=== PATIENT | male | born 1985 | race Caucasian/White ===

== ENCOUNTER → 2016-07-03 | Outpatient (CLI) | payer OTHER ==
--- NOTE | ~2016-07-03 | US85 ---
[facility] A Service of [facility] RADIOLOGY TEXT RESULTS PATIENT: ALONZO TORRES LOCATION: SNIV : 85 UNIT #: [id number] AGE: [address]: Akhil Matias MD SEX: M ORDER DR: [id number] [place] [id number] MR#: [id number] Acc #: [id number] NAME: ALONZO TORRES : 1985 SEX: M STUDY DATE/TIME: 07/03/2016 13:08 UNIT: SNIV ROOM: STUDY DESCRIPTION: [facility] Unil or [facility] Stdy Attending Physician: Akhil Matias M.D. Referring Physician: Akhil Matias M.D. Ordering Physician: Akhil Matias M.D. Primary Care Physician: Akhil Matias M.D. MEDICAL IMAGING REPORT This report is preliminary unless electronic signature is present. EXAM Right lower extremity venous duplex, 07/03/2016. HISTORY Right lower extremity pain and swelling for 2 months. Evaluate for deep vein thrombosis. TECHNIQUE Venous ultrasound examination of the right lower extremity was performed using grayscale, spectral Doppler and color flow Doppler imaging. FINDINGS The examination is negative. There is no evidence of right lower extremity deep venous thrombus from the groin to the lower calf. Visualized greater saphenous vein is also patent. IMPRESSION Negative examination. No evidence of right lower extremity deep venous thrombosis. Dictated by... Crow Skinner M.D. THIS IS AN ELECTRONICALLY VERIFIED REPORT Crow Skinner M.D. at 07/04/2016 2:27 PM KRT/geoffrey TD: 07/03/2016 15:13 JOB #: [id number] [facility] A Service [facility] RADIOLOGY TEXT RESULTS PATIENT: ALONZO TORRES LOCATION: SNIV : 85 UNIT #: [id number] AGE: [address]: Akhil Matias MD SEX: M ORDER DR: MEDICAL IMAGING REPORT Page 1 of 1
== END | disposition home or self-care (01) ==
LOC: SNIV 12:43
DX: M79.89 Other specified soft tissue disorders (principal)
CPT/HCPCS: 93971

== ENCOUNTER 2016-08-04 06:37 | Emergency (ER) | payer OTHER ==
--- NOTE | ~2016-08-04 | EKG ---
PATIENT: ALONZO TORRES UNIT #: [id number] Ventricular Rate: 86 BPM Atrial Rate: 86 BPM P-R Interval: 116 ms QRS Duration: 84 ms Q-T Interval: 408 ms QTC Calculation(Bezet): 488 ms P Fitzwilliam: 28 degrees Calculated R Fitzwilliam: 29 degrees Calculated T Fitzwilliam: 3 degrees Diagnosis Line: Normal sinus rhythm Diagnosis Line: Prolonged QT Diagnosis Line: Abnormal ECG Diagnosis Line: No previous ECGs available Diagnosis Line: Confirmed by TERRANCE BARRERA MD ([id number]) on Diagnosis Line: 08/05/2016 1:32:12 PM INTERPRETING MD: IDA
[2016-08-04 07:39] LABS: BASOPHIL# 0.1 X10e3 (0-0.3); BASOPHIL% 0.9 % (0-2.5); EOSINOPHIL% 0.1 % (0.0-7.0); HEMATOCRIT 48.5 % (38.0-50.0); HEMOGLOBIN 16.4 gm/dL (13.0-16.0); LYMPHOCYTE# 1.5 X10e3 (1.0-3.5); MEAN CELL VOLUME 89.4 FL (83-96); MEAN CORPUSCULAR HEMOGLOBIN 30.2 PG (28-34); MEAN CORPUSCULAR HGB CONC 33.8 g/dL (30-36); MONOCYTE# 0.6 X10e3 (0-1.0); MONOCYTE% 7.2 % (3.0-12.0); NEUTROPHIL% 73.8 % (40-75); PLATELET COUNT 200 X10e3 (140-420); RED BLOOD COUNT 5.42 X10e (3.90-5.60); RED CELL DISTRIBUTION WIDTH 14.5 % (11.0-15.5); WHITE BLOOD COUNT 8.2 X10e3 (4.0-10.5)
[2016-08-04 07:40] LABS: DIFF IND NO
[2016-08-04 08:11] LABS: ALBUMIN SERUM 3.9 g/dL (3.5-5.0); BILIRUBIN, DIRECT 0.2 mg/dL (0.0-0.2); BILIRUBIN,INDIRECT 0.6 mg/dL (0.0-0.9); BILIRUBIN,TOTAL 0.8 mg/dL (0.2-2.0); BUN/CREATININE RATIO 8.88; CALCIUM SERUM 8.8 mg/dL (8.4-10.2); CREATININE SERUM 0.9 mg/dL (0.6-1.4); GLOM FILT RATE Estimated 113.4 mL/min (>60)
== END 2016-08-04 12:17 ==
LOC: CED 06:37
PROVIDERS: Emergency Medicine
DX: F10.129 Alcohol abuse with intoxication, unspecified (principal); E87.6 Hypokalemia; I10 Essential (primary) hypertension; F41.9 Anxiety disorder, unspecified; F17.200 Nicotine dependence, unspecified, uncomplicated
CPT/HCPCS: 36415; 80048; 80076; 85025; 93005; 96360; 99285; G0480

== ENCOUNTER 2016-08-04 09:00 | Inpatient (IN) | payer OTHER ==
--- NOTE | ~2016-08-04 | PN ---
Unit #: [id number] #: [id number] Patient: ALONZO TORRES [id number] [facility] [address] [place] [address] [id number] I MR#: [id number] NAME: ALONZO TORRES ROOM: [facility] Age: 31 Sex: M Admission Date: 08/04/2016 : 1985 Attending Physician: Jimmy Barakat M.D. Admitting Physician: Jimmy Barakat M.D. Primary Care Physician: Akhil Matias M.D. [facility] PROGRESS NOTES DATE This patient was seen and evaluated on 08/06/2016. DISCUSSION Upon today's assessment, the patient was found sitting in the day room interacting positively with peers. He reports that he is anxious to visit home and get back to his family, but does report that he is aware that he is still having some slight signs and symptoms of withdrawal as evidenced by tremor and elevated blood pressure at this time. The patient reports difficulty with controlling his hypertension at home, but does state that it has never been this high while at this facility. A p.r.n. dose of Clonidine 0.1 was ordered q.6 hours for a blood pressure over 140/90. This patient will continue to be appropriately monitored regarding his blood pressures. Mental status at this time, the patient is a causal dressed mail with good personal hygiene and he is alert and oriented to person, place, time, date and situation. His mood is slightly anxious and relates this to wanting to get home back to his family. Affect congruent. Speech is relevant, coherent with a normal rate and tone. His thought processes are logical and goal-directed. He denies suicidal or homicidal ideation. He denies auditory/visual hallucinations and no overt symptoms of psychosis was noted. Memory and directional functioning was grossly intact. Judgment and insight appear to be improving. Sleep and appetite reported as adequate and he denies any side affects to the medications at this time. The patient will continue to be monitored on the alcohol withdrawal base protocol with a CIWA assessment. Vital signs taken q.6 hours p.r.n. Nursing was told to monitor vital signs closely and administer Clonidine 0.1 mg if blood pressure continues to be elevated over 140/90. Med consult also ordered. Dictated by... EVANGELISTA Ibarra TD: 08/08/2016 09:14 JOB #: [id number] Unit #: [id number] #: [id number] Patient: ALONZO TORRESHARVEY PROGRESS NOTES Page 1 of 1 X ERLIN WEAVER PROGRESS NOTE
--- NOTE | ~2016-08-04 | HP ---
Unit #: [id number] #: [id number] Patient: ALONZO TORRES [id number] [place] [address] [id number] I MR#: [id number] NAME: ALONZO TORRES ROOM: P181 Age: 31 Sex: M Admission Date: 08/04/2016 : 1985 Attending Physician: Jimmy Barakat M.D. Admitting Physician: Jimmy Barakat M.D. Primary Care Physician: Akhil Matias M.D. HISTORY AND PHYSICAL HISTORY OF PRESENT ILLNESS Alonzo is a 31 year old admitted to [facility] because of his abuse of alcohol. PAST MEDICAL HISTORY 1. Long history of alcohol abuse. 2. Obesity. 3. High blood pressure. PAST SURGICAL HISTORY Nothing reported. ALLERGIES No known drug allergies. SOCIAL HISTORY Smokes 1 pack per day. Drinks at least 2 pints to a fifth of liquor on a daily basis. Denies illicit drug use. FAMILY HISTORY Medically noncontributory. REVIEW OF SYSTEMS CONSTITUTIONAL: No fever or chills. HEENT: Denies any sore throat, ear pain or runny nose. CARDIOVASCULAR: Denies chest pain, irregular heart rhythm or palpitations. CHEST: Denies shortness of breath or cough. No hemoptysis. GASTROINTESTINAL: Denies nausea, vomiting, diarrhea or chronic constipation. ENDOCRINE: Denies history of increased thirst or urination. No recent significant weight loss or gain. GENITOURINARY: Denies dysuria, frequency, or hematuria. SKIN: Denies any rashes. HEMATOLOGIC: Denies history of increased bleeding or bruising. MUSCULOSKELETAL: Denies any hot, swollen joints. No generalized muscle pain. NEUROLOGIC: Denies problems with vision or speech. No frequent, severe headaches. No numbness, tingling or weakness in any extremities. Denies loss of bladder or bowel control. CURRENT MEDICATIONS 1. Detox protocol. 2. Toprol XL 50 mg daily. Unit #: [id number] #: [id number] Patient: ALONZO TORRES PHYSICAL EXAMINATION GENERAL: Alert, obese, in no apparent distress. VITAL SIGNS: Blood pressure 160/120, heart rate 80, respirations 16, temperature 98.6. WEIGHT: 234. HEIGHT: 5 feet 10 inches. SKIN: Warm and dry without rash or lesion. HEENT: Normocephalic. TMs not viewed. Oral and nasal passages clear. Conjunctivae clear. PERRLA. EOMs intact. NECK: Supple without lymphadenopathy or thyromegaly. HEART: Regular rate and rhythm without murmur. LUNGS: Clear. ABDOMEN: Soft, nontender. : Not done. EXTREMITIES: No evidence of cyanosis. He has significant clubbing of his fingers. No edema noted. NEUROLOGICAL: Grossly within normal limits. Cranial Nerves: II: Visual parnell are intact. III, IV AND : Extraocular movements are intact. Pupils are equal, round and reactive to light. V: Facial sensation is grossly normal. VII: Facial movements and expression are normal. VIII: Auditory acuity grossly intact. IX, X: Uvula is midline. Phonation is normal. XI: Patient shrugs shoulders and turns head normally. XII: Tongue protrudes in the midline. Sensory and Motor Function: Sensory and motor sensation is grossly normal. Motor: moves all extremities well. Coordination: Gait is normal. Deep Tendon Reflexes: Intact. IMPRESSION 1. Psychiatric admission. 2. History of alcohol abuse. 3. Obesity. 4. High blood pressure, not controlled on admission. 5. 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 RECOMMENDATIONS PSYCHIATRIC: Per psychiatrist. MEDICAL: 1. See no contraindications to participate in facility's activities. 2. Detox per protocol. MEDICAL PROGNOSIS Good. MEDICAL CONDITION Stable. Dictated by... Wayne SagastumeAKhoi-Brandon. for Tom Saha/krish TD: 08/04/2016 22:28 Unit #: [id number] #: [id number] Patient: ALONZO TORRES JOB #: [id number] HISTORY AND PHYSICAL Page 1 of 1 X Magalie Gaffney HISTORY AND PHYSICAL
--- NOTE | ~2016-08-04 | PA ---
Unit #: [id number] #: [id number] Patient: ALONZO TORRES [id number] [facility] [address] [place] [address] [id number] I MR#: [id number] NAME: ALONZO TORRES ROOM: [facility] Age: 31 Sex: M Admission Date: 08/04/2016 : 1985 Date of Assessment: 08/05/2016 Attending Physician: Jimmy Barakat M.D. Admitting Physician: Jimmy Barakat M.D. Primary Care Physician: Akhil Matias M.D. PSYCHIATRIC ASSESSMENT DATE OF SERVICE 08/05/2016. The patient is a 31-year-old male, admitted to [facility] because of abusive alcohol. INFORMANT The patient reliability good. CHIEF COMPLAINT The patient reports "I'm a drinker." HISTORY OF PRESENT ILLNESS The patient is a 31-year-old, admitted to [facility] because of his use of alcohol. He reports that he had been drinking at least two pint to a fifth of liquor, he names his liquor as [place] on a daily basis. He reports that he has been drinking this much for the past 5 years. He denies use of any other illicit substances. 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 He is and has 2 twin daughters. The patient reports at this time that he is attempting to come in to this facility, detox safely from alcohol, and follow up with community treatment resources once discharged from this facility and return to work and be with his family. PAST PSYCHIATRIC HISTORY The patient reports that this is his first admission for substance abuse issues and he has had no admission to any other facilities in this area or 28-day program. He has had no prior admissions for psychiatric issues as well. He denies any history of suicide attempts. FAMILY HISTORY Denies any family history of substance abuse or psychiatric diagnoses. SOCIAL HISTORY This patient lives in [place], [place]. He is employed currently as a packing and shipping clerk. He has a , 2 daughter. The patient reports to this facility voluntarily. He reports that his highest degree of education is 2 years of college. PAST MEDICAL HISTORY See medical record. Unit #: [id number] #: [id number] Patient: ALONZO TORRES ALLERGIES No known drug allergies at this time. SOCIAL HISTORY Substance abuse as noted above. MENTAL STATUS EXAMINATION At this time reveals a 31-year-old male who was casually dressed with good personal hygiene. He is alert and oriented to person, place, time, date, and situation. His mood is euthymic. His affect is congruent. Speech is relevant and coherent with normal tone and rate. Thought processes are goal directed and logical. He denies suicidal or homicidal ideation. He currently denies auditory or visual hallucinations. No overt symptoms of psychosis were noted. Memory and intellectual functioning appeared grossly intact. His judgment and insight appear goal directed and are improving. He reports adequate sleep and adequate appetite, and denies any side effects to the medications at this time. ASSETS AND LIABILITIES The patient is youthful and presents voluntarily for treatment. 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 ADMITTING DIAGNOSES AXIS I: Alcohol dependent with withdrawal, uncomplicated. AXIS II: Deferred. AXIS III: Hypertension. AXIS IV: AXIS V: PSYCHIATRIC PLAN The patient was admitted and placed on alcohol detox protocol. His home medications were approved for hypertension, which is Toprol-XL 50 mg daily. Treatment goals are improvement in insight, establishment of sobriety, and improvement in coping skills. DISCHARGE PLANNING He will follow up with community mental health, substance abuse treatment resources. ESTIMATED LENGTH OF STAY 3 to 5 days. Dictated by... Guillermina Weaver APRN for Tom Pinto/ania TD: 08/07/2016 03:08 JOB #: [id number] Unit #: [id number] #: [id number] Patient: ALONZO TORRES PSYCHIATRIC ASSESSMENT Page 1 of 1 X GUILLERMNIA WEAVER PSYCHIATRIC ASSESSMENT
--- NOTE | ~2016-08-04 | CO ---
Unit #: [id number] #: [id number] Patient: ALONZO TORRES [id number] [place] [address] [id number] I MR#: [id number] NAME: ALONZO TORRES ROOM: [facility] Age: 31 Sex: M Admission Date: 08/04/2016 : 1985 Attending Physician: Jimmy Barakat M.D. Primary Care Physician: Akhil Matias M.D. Consultation Date: 08/06/2016 CONSULTATION REPORT HISTORY OF PRESENT ILLNESS Alonzo has a history of hypertension. On admission, his blood pressure was 160/120. He also has had a blood pressure of 149/100, this morning was 138/97. He is taking Toprol 50 mg p.o. daily. Reports that he has been taking his medication at home, however, he had not been taking it for the day or two before he was admitted. He also has recently been started on clonidine 0.1 mg q.6 hours p.r.n. for blood pressures greater than 140/90, which seems to be helping as well. He has a primary care provider and plans to follow up after discharge. PHYSICAL EXAMINATION CARDIAC: Regular rate and rhythm. No murmur, gallop, or rub. RESPIRATORY: Clear to auscultation bilaterally. ASSESSMENT AND PLAN Hypertension. We will continue with Toprol 50 mg p.o. daily and p.r.n. clonidine. Discussed risks of chronically elevated high blood pressure. The patient will follow up with primary care provider once he is discharged. Dictated by... Jenny Olivo A.P.R.N. for Tom Saha/ania TD: 08/06/2016 23:41 JOB #: [id number] CONSULTATION REPORT Page 1 of 1 X JENNY SHOOK APRN CONSULTATION REPORT
--- NOTE | ~2016-08-04 | DS ---
Unit #: [id number] #: [id number] Patient: ALONZO TORRES [id number] [facility] [address] [place] [address] [id number] I MR#: [id number] NAME: ALONZO TORRES ROOM: [facility] Age: 31 Sex: M Admission Date: 08/04/2016 : 1985 Discharge Date: 08/07/2016 Attending Physician: Jimmy Barakat M.D. Primary Care Physician: Akhil Matias M.D. DISCHARGE SUMMARY REASON FOR ADMISSION Alonzo is a 31-year-old man who reports he has been abusing alcohol up to 2 pints to a fifth of liquor daily. He is currently employed as a rug layer and reports that he has been increasingly having problems with psychosocial functioning. He had no suicidal ideation, intent, or plan and was admitted for stabilization. DIAGNOSTIC STUDIES LABORATORY RESULTS: Please see hospital chart. HOSPITAL COURSE The patient was admitted and placed on the alcohol detox protocol. His antihypertensive was restarted. He had an uneventful period of inpatient detox with no delirium, confusion, or disorientation. He attended psychotherapy groups with dual diagnosis focus. After the weekend, he was able to contract for safety with no further suicidal ideation, and no evidence of detox. DISCHARGE DIAGNOSES AXIS I: Alcohol dependence with withdrawal. AXIS II: No diagnosis. AXIS III: Hypertension. AXIS IV: AXIS V: DISCHARGE INSTRUCTIONS Follow up with community mental health resources for chemical dependence as well as AA. He was referred to his primary care physician for ongoing hypertension treatment. DISCHARGE MEDICATIONS None were provided. The patient was continued on Lexapro 10 mg daily for mood, Toprol-XL 50 mg daily for hypertension, and Protonix 40 mg daily for GERD. CONDITION AT DISCHARGE Improved. PROGNOSIS Good. DIET AND ACTIVITY Unit #: [id number] #: [id number] Patient: ALONZO TORRES Per primary care doctor. Dictated by... Jimmy Barakat M.D. H/ania TD: 08/08/2016 15:09 JOB #: [id number] DISCHARGE SUMMARY Page 1 of 1 X Jimmy Barakat MD X DISCHARGE SUMMARY
== END 2016-08-07 12:20 | disposition home or self-care (01) | DRG 897 ==
LOC: P1E 13:26
PROC: HZ2ZZZZ Detoxification Services for Substance Abuse Treatment (ICD-10-PCS; principal; 2016-08-04)
DX: F10.230 Alcohol dependence with withdrawal, uncomplicated (principal); I10 Essential (primary) hypertension; E66.9 Obesity, unspecified; Z68.33 Body mass index [BMI] 33.0-33.9, adult; F17.210 Nicotine dependence, cigarettes, uncomplicated
CPT/HCPCS: 86592

== ENCOUNTER 2016-08-21 23:00 | Inpatient (IN) | payer OTHER ==
--- NOTE | ~2016-08-21 | PN ---
Unit #: [id number] #: [id number] Patient: ALONZO TORRES [id number] [facility] [address] [place] [address] [id number] I MR#: [id number] NAME: ALONZO TORRES. ROOM: P182 Age: 31 Sex: M Admission Date: 08/22/2016 : 1985 Attending Physician: Jimmy Barakat M.D. Admitting Physician: Jimmy Barakat M.D. Primary Care Physician: Akhil Matias M.D. [facility] PROGRESS NOTES DATE 08/23/2016 DISCUSSION Alonzo complains of some restlessness at bedtime and erratic sleep. He is alert and fully oriented today. His memory and concentration are intact. His thought processes are logical with no active psychosis. He denies suicidal or homicidal ideation. ASSESSMENT Alcohol dependence. PLAN We will continue with current medications and provide nighttime medications as needed. Dictated by... Tom Pinto/krish TD: 08/24/2016 17:40 JOB #: [id number] [facility] PROGRESS NOTES Page 1 of 1 X Jimmy Barakat MD X PROGRESS NOTE
--- NOTE | ~2016-08-21 | PA ---
Unit #: [id number] #: [id number] Patient: ALONZO TORRES [id number] [facility] [address] [place] [address] [id number] I MR#: [id number] NAME: ALONZO TORRES. ROOM: [facility] Age: 31 Sex: M Admission Date: 08/22/2016 : 1985 Date of Assessment: Attending Physician: Jimmy Barakat M.D. Admitting Physician: Jimmy Barakat M.D. Primary Care Physician: Akhil Matias M.D. PSYCHIATRIC ASSESSMENT INFORMANTS Patient, reliable; OLOP, reliable. CHIEF COMPLAINT Alcohol abuse. HISTORY OF PRESENT ILLNESS Alonzo is a 31-year-old man, who was recently discharged from this facility, who reported that he relapsed very quickly after discharge. He had vague suicidal ideation and had active detox symptomatology, and also reported he had not been sleeping. He was readmitted for stabilization. PAST PSYCHIATRIC HISTORY One previous admission to this facility. Please see details at that time. FAMILY PSYCHIATRIC HISTORY None reported. 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 He is a high school graduate with two years of college. He has no abuse history. PAST MEDICAL HISTORY None currently. MEDICATIONS Please see MAR. ALLERGIES No known medication allergies. SUBSTANCE ABUSE HISTORY As noted, the patient has a problem with alcoholism and had detox recently. MENTAL STATUS EXAMINATION The patient presented as a mildly disheveled man, who appeared his stated age. He was cooperative with the examination. Mood was irritable with a congruent affect. He was alert and fully oriented. Memory and concentration were intact. Thought processes were logical with no active psychosis and no suicidal ideation, intent, or plan. Insight and judgment were fair. Fund of knowledge and abstraction were intact. Unit #: [id number] #: [id number] Patient: ALONZO TORRES ASSETS AND LIABILITIES The patient is voluntary for treatment, is employable, and has supportive family. Liabilities including problems with sobriety and complications by employment in a restaurant. ADMITTING DIAGNOSES AXIS I: Alcohol dependence withdrawal, uncomplicated. AXIS II: No diagnosis. AXIS III: Hypertension. AXIS IV: AXIS V: PSYCHIATRIC PLAN The patient was admitted and placed on the alcohol detox protocol and his home medications. He will enroll in dual diagnosis groups and activities. TREATMENT GOALS Resolution of intoxication, improvement in insight, and improvement in coping skills. DISCHARGE PLANNING Follow up with [facility]. ESTIMATED LENGTH OF STAY 5 days. Dictated by... Jimmy Barakat M.D. RAYNE/ania TD: 08/22/2016 13:08 JOB #: [id number] PSYCHIATRIC ASSESSMENT Page 1 of 1 X Jimmy Barakat MD X PSYCHIATRIC ASSESSMENT
--- NOTE | ~2016-08-21 | DS ---
Unit #: [id number] #: [id number] Patient: ALONZO TORRES [id number] [facility] [address] [place] [address] [id number] I MR#: [id number] NAME: ALONZO TORRES. ROOM: [facility] Age: 31 Sex: M Admission Date: 08/22/2016 : 1985 Discharge Date: 08/24/2016 Attending Physician: Jimmy Barakat M.D. Primary Care Physician: Akhil Matias M.D. DISCHARGE SUMMARY REASON FOR ADMISSION Alonzo is a 37-year-old man who relapsed soon after leaving the hospital last time. His mood was depressed with some suicidal ideation, but he contracted for safety. DIAGNOSTIC STUDIES LABORATORY RESULTS: Please see hospital chart. HOSPITAL COURSE The patient was admitted and placed on the alcohol detox protocol. His home medications for depression and hypertension were restarted. He had an uneventful period of detox with no adverse events such as hallucinations, delirium, or confusion. He participated appropriately and actively in psychotherapy groups and activities and was able to contract for safety on the date of discharge. DISCHARGE DIAGNOSES AXIS I: Alcohol dependence, uncomplicated; major depression. AXIS II: No diagnosis. AXIS III: Hypertension. AXIS IV: AXIS V: DISCHARGE INSTRUCTIONS Follow up with chemical dependency counselor in the community. DISCHARGE MEDICATIONS All prescriptions were to be given by primary care physician. Lexapro 10 mg daily for depression, Toprol-XL 50 mg daily for hypertension, and Protonix 40 mg daily for GERD. CONDITION AT DISCHARGE Improved. PROGNOSIS Fair to good. DIET AND ACTIVITY Ad kranthi. Dictated by... Unit #: [id number] #: [id number] Patient: ALONZO TORRES Jimmy Barakat M.D. [facility]/modl TD: 08/24/2016 14:04 JOB #: [id number] DISCHARGE SUMMARY Page 1 of 1 X Jimmy Barakat MD X DISCHARGE SUMMARY
--- NOTE | ~2016-08-21 | HP ---
Unit #: [id number] #: [id number] Patient: ALONZO TORRES [id number] [facility] [address] [place] [address] [id number] MR#: [id number] NAME: ALONZO TORRES. ROOM: 82 Age: 31 Sex: M Admission Date: 08/22/2016 : 1985 Attending Physician: Jimmy Barakat M.D. Admitting Physician: Jimmy Barakat M.D. Primary Care Physician: Akhil Matias M.D. HISTORY AND PHYSICAL HISTORY OF PRESENT ILLNESS Alonzo is a 31 year old, admitted to [facility] because of his abuse of alcohol. He has had other admissions to this facility for the same. The patient was seen and history and physical, dated 08/04/2016 was reviewed. This is current. No changes. Please see history and physical, dated 08/04/2016. Dictated by... Magalie Gaffney P.A.-C. for Tom Saha/tra TD: 08/23/2016 08:08 JOB #: [id number] HISTORY AND PHYSICAL Page 1 of 1 X Magalie Gaffney HISTORY AND PHYSICAL
[2016-08-22 09:57] LABS: BASOPHIL# 0.1 X10e3 (0-0.3); BASOPHIL% 1.2 % (0-2.5); EOSINOPHIL% 0.2 % (0.0-7.0); HEMATOCRIT 44.1 % (38.0-50.0); LYMPHOCYTE# 1.7 X10e3 (1.0-3.5); LYMPHOCYTE% 18.7 % (17.0-45.0); MEAN CELL VOLUME 89.8 FL (83-96); MEAN CORPUSCULAR HEMOGLOBIN 30.5 PG (28-34); MONOCYTE# 0.6 X10e3 (0-1.0); NEUTROPHIL# 6.9 X10e3 (1.5-7.1); NEUTROPHIL% 73.9 % (40-75); PLATELET COUNT 347 X10e3 (140-420); RED BLOOD COUNT 4.91 X10e (3.90-5.60); RED CELL DISTRIBUTION WIDTH 14.3 % (11.0-15.5); WHITE BLOOD COUNT 9.3 X10e3 (4.0-10.5)
[2016-08-22 09:58] LABS: DIFF IND NO
[2016-08-22 09:59] LABS: ALBUMIN SERUM 3.8 g/dL (3.5-5.0); BILIRUBIN,TOTAL 0.5 mg/dL (0.2-2.0); BUN/CREATININE RATIO 8.75; CALCIUM SERUM 8.5 mg/dL (8.4-10.2); CREATININE SERUM 0.8 mg/dL (0.6-1.4); GLOM FILT RATE Estimated 119.1 mL/min (>60); POTASSIUM 3.1 mmol/L (3.5-5.1); PROTEIN TOTAL SERUM 6.4 g/dL (6.0-8.3)
[2016-08-23 09:50] LABS: URINE APPEARANCE CLEAR; URINE BILIRUBIN NEG (NEG); URINE BLOOD NEG (NEG); URINE COLOR YELLOW; URINE GLUCOSE NEG (NEG); URINE KETONE NEG (NEG); URINE LEUKOCYTE ESTERASE TRACE (NEG); URINE NITRATE NEG (NEG); URINE PH 7.5 (5-8); URINE PROTEIN NEG (NEG); URINE SPECIFIC GRAVITY 1.001 (1.003-1.035); URINE UROBILINOGEN 0.2 MG/DL (NEG)
[2016-08-23 09:53] LABS: URBCS1 AUWI 0-2 /[HPF] (0-2); URINE BACTERIA AUWI NEG (NEGATIVE); URINE SQUAMOUS EPITHELIAL CELL NONE SEEN /[HPF]; UWBCS1 AUWI 0-2 (0-5)
[2016-08-23 09:58] LABS: AMPHETAMINE NEG (NEG); BARBITURATES NEG (NEG); BENZODIAZEPINES NEG (NEG); COCAINE NEG (NEG); MARIJUANA NEG (NEG); OPIATES NEG (NEG); TRICYCLIC ANTIDEPRESSANTS NEG (NEG); U METHADONE NEG (NEG)
== END 2016-08-24 11:07 | disposition home or self-care (01) | DRG 897 ==
LOC: P1E 08-22 01:22
PROVIDERS: Psychiatry & Neurology Psychiatry
PROC: HZ2ZZZZ Detoxification Services for Substance Abuse Treatment (ICD-10-PCS; principal; 2016-08-22)
DX: F10.239 Alcohol dependence with withdrawal, unspecified (principal); I10 Essential (primary) hypertension; F32.9 Major depressive disorder, single episode, unspecified
CPT/HCPCS: 80053; 80307; 81003; 85025; 86592

== ENCOUNTER 2016-09-02 21:06 | Emergency (ER) | payer OTHER | END 2016-09-02 23:35 | disposition home or self-care (01) | LOC: CFTX 21:06 → CED 21:06 → CFTX 22:14 | DX: S61.211A Laceration without foreign body of left index finger without damage to nail, initial encounter (principal); I10 Essential (primary) hypertension; F17.210 Nicotine dependence, cigarettes, uncomplicated; W26.0XXA Contact with knife, initial encounter; Y92.009 Unspecified place in unspecified non-institutional (private) residence as the place of occurrence of the external cause | CPT/HCPCS: 12001; 99283 ==